=== PATIENT | female | born 1995 | race Two or more races ===

== ENCOUNTER 2022-01-17 14:43 | Emergency (ER) | payer OTHER ==
[~2022-01-17] VITALS: Ht 165.1 cm; Wt 54.4 kg
[2022-01-17] MEDS ORDERED: ZOFRAN8 MG PO (15:20)
== END 2022-01-17 20:10 | disposition home or self-care (01) ==
LOC: ER 14:43
DX: O21.1 Hyperemesis gravidarum with metabolic disturbance (principal); Z3A.01 Less than 8 weeks gestation of pregnancy; Z37.0 Single live birth; E83.51 Hypocalcemia

== ENCOUNTER 2022-03-26 09:50 | Emergency (ER) | payer OTHER ==
[~2022-03-26] VITALS: Ht 165.1 cm; Wt 57.6 kg
[~2022-03-26 09:50] MED LIST: ZOFRAN8 MG PO
== END 2022-03-26 17:49 | disposition home or self-care (01) ==
LOC: ER 09:50
DX: O23.42 Unspecified infection of urinary tract in pregnancy, second trimester (principal); N39.0 Urinary tract infection, site not specified; E86.0 Dehydration; Z3A.19 19 weeks gestation of pregnancy

== ENCOUNTER 2022-04-29 17:28 | Inpatient (IN) | payer OTHER ==
[~2022-04-29] VITALS: Ht 165.1 cm; Wt 62.1 kg
[2022-04-29] MEDS ORDERED: DUI500 PO (17:30)
[2022-05-04] MEDS ORDERED: ZITHROMAX500 MG PO (11:35)
[2022-05-04] MEDS ORDERED: AMOX-CLAV 875-1 EACH PO (11:36)
== END 2022-05-04 15:00 | disposition home or self-care (01) | DRG 831 ==
LOC: LDR 17:28 → OB/GYN 17:28 → LDR 22:41 → OB/GYN 04-30 10:31
PROVIDERS: ADMIT Specialist; ATTEND Specialist
PROC: 4A1HXCZ Monitoring of Products of Conception, Cardiac Rate, External Approach (ICD-10-PCS; principal; 2022-04-29)
PROC: BT43ZZZ Ultrasonography of Bilateral Kidneys (ICD-10-PCS; 2022-04-29)
PROC: BY4CZZZ Ultrasonography of Second Trimester, Single Fetus (ICD-10-PCS; 2022-04-29)
PROC: 8E0ZXY6 Isolation (ICD-10-PCS; 2022-04-30)
PROC: BU4CZZZ Ultrasonography of Uterus and Ovaries (ICD-10-PCS; 2022-04-30)
DX: O23.32 Infections of other parts of urinary tract in pregnancy, second trimester (principal); U07.1 COVID-19; N39.0 Urinary tract infection, site not specified; O98.512 Other viral diseases complicating pregnancy, second trimester; O98.812 Other maternal infectious and parasitic diseases complicating pregnancy, second trimester; Z3A.24 24 weeks gestation of pregnancy; B96.0 Mycoplasma pneumoniae [M. pneumoniae] as the cause of diseases classified elsewhere

== ENCOUNTER 2022-08-11 06:00 | Inpatient (IN) | payer OTHER ==
[~2022-08-11] VITALS: Ht 152.4 cm; Wt 73.5 kg
[~2022-08-11 06:00] MED LIST changes: +AMOX-CLAV 875-1 EACH PO; +DUI500 PO; +ZITHROMAX500 MG PO
[2022-08-11] MEDS ORDERED: PRENATAL + DHA1 EAC1 PO (07:23)
== END 2022-08-14 14:05 | disposition home or self-care (01) | DRG 788 ==
LOC: OB/GYN 06:00 → LDR 06:00 → OB/GYN 19:30
PROVIDERS: ADMIT Specialist; ATTEND Specialist
PROC: 4A1HXCZ Monitoring of Products of Conception, Cardiac Rate, External Approach (ICD-10-PCS; 2022-08-11)
PROC: 10D00Z1 Extraction of Products of Conception, Low, Open Approach (ICD-10-PCS; principal; 2022-08-11 15:00)
DX: O82 Encounter for cesarean delivery without indication (principal); Z3A.39 39 weeks gestation of pregnancy; Z37.0 Single live birth; Z20.822 Contact with and (suspected) exposure to COVID-19